=== PATIENT | male | born 1975 | race Caucasian/White ===

== ENCOUNTER 2016-11-27 16:56 | Emergency (ER) | payer OTHER ==
[~2016-11-27] VITALS: Ht 177.8 cm; Wt 84.1 kg
[2016-11-27 17:12] VITALS: TEMP 99.8
[2016-11-27] MEDS ORDERED: HUMIRA40 MG/0.1 SC (17:18)
[2016-11-27] MEDS ORDERED: ZESTRIL 10MG10 MG PO (17:18)
[2016-11-27] MEDS ORDERED: AMBIEN 5MG TABLE5 MG (17:19)
[2016-11-27] MEDS ORDERED: REFRESH OPTIVE10 M2 OP (17:19)
[2016-11-27 18:58] VITALS: BP 176/96; PULSE 90
[2016-11-27] MEDS ORDERED: ATIVAN 0.50.5 MG/TAB PO (19:03)
== END 2016-11-27 19:14 | disposition home or self-care (01) ==
LOC: COL.ER 16:56
DX: F41.9 Anxiety disorder, unspecified (principal); I10 Essential (primary) hypertension; F17.210 Nicotine dependence, cigarettes, uncomplicated